=== PATIENT | female | born 2005 | race Caucasian/White ===

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

== ENCOUNTER 2024-03-23 15:00 | Outpatient (CLI) | payer OTHER ==
--- NOTE | 2024-03-24 00:15 | XRAY Report ---
PROCEDURE: Chest 2V INDICATIONS: SCREENING FOR TB TECHNIQUE: 2 views of the chest were acquired. COMPARISON: None. FINDINGS: Surgical changes and devices: None. Lungs and pleura: No pleural effusions or pneumothorax. Lungs are clear. Mediastinum: Mediastinal contours appear normal. Heart size is normal. Bones and chest wall: No suspicious bony lesions. Overlying soft tissues appear unremarkable. IMPRESSION: No acute cardiopulmonary process. Reviewed by: Aixa Atkinson MD on 03/24/2024 12:14 AM PDT Approved by: Aixa Atkinson MD on 03/24/2024 12:14 AM PDT Station ID: [id number]
== END 2024-03-23 15:15 | disposition home or self-care (01) ==
LOC: DI.N 15:00
PROVIDERS: ATTEND Family Medicine
DX: Z11.1 Encounter for screening for respiratory tuberculosis (principal)